=== PATIENT | male | born 1980 | race Two or more races ===

== ENCOUNTER 2024-05-18 11:18 | Outpatient (AMB) | payer OTHER, SELFPAY ==
--- NOTE | 2024-05-18 11:20 | A.OFFPC_ITS ---
Vital Signs 05/18/24 11:23 Height 5 ft 9.69 in Weight 227 lb 2 oz BMI 32.9 BP 160/104 H Blood Pressure Location Lt brachial Position Sitting Respiration 16 Pulse 99 Temp 99.9 F Temp Source Oral Pulse Oximetry (%) 96 Oxygen Delivery Method Room Air Intake Visit Reasons: establish care Intake Note: Patient is a new patient here to establish care. [facility] Medical records have not been requested and have not been received; Release signed today. Assembler Erector Required: No Accompanied by: Self / Same As Patient Allergies bee venom protein (honey bee) Allergy (Severe, Verified 05/20/24 20:54) Anaphylaxis bee sting Allergy (Unknown, Uncoded 05/20/24 20:54) anaphylaxis Medication List - Last Reconciled 05/18/24 by KALIA Muniz amlodipine 10 mg PO DAILY Tobacco use date assessed: 05/18/24 Dental Screening Dental Screen Date: 05/18/24 Did you have a dental visit in the last 12 months?: No Did you have a dental problem in the last 6 months where you did not have access to dental care?: No HPI establish care HPI Details Previous PCP: cannot remember Last visit:does not remember Last PE: Specialist: no OBGYN:n/a Past medical history: elevated high blood pressure Medications: amlodipine 10 mg daily Family HX: mother has triple bypass, father heart disease, had a coronary stent (passed in his 70s) Problem: The patient reports that he has been monitoring his blood pressure and he did not like the numbers that he was getting. Reports that he took the medication until he got better then he stopped taking it. Reports that lately he has been feeling bad and again The patient reports getting and right sided chest pain and cause current type pain down his arm, reports that when he add pressure the pain goes away. Reports that it has been happening every day lately. Reports that today, it is a little bit better, yesterday he felt pale and dizzy. Reports that he has been getting heart palpitation as well and shortness of breath. ekg negative, will start the patient back on amlodipine 10 mg daily the patient will write on the portal about his blood pressure readings for adjustment. Will do a cardiology referral left heel: unable to put full weight on it in the mornings reports limping in the morning until his body's warm up, then he is able to put full body weight. Will do an xray of the calcaneal numbness on his face intermittent overall, but sometimes on the left side of his face only. Sensation in bilateral and equally, strong facial muscles, slight left side of mouth drooping. The patient reports that his face been like this. No focal weakness feels like left knee gives out sometime hx of l4-5 cortisone shots, they wanted to do surgery but he declined it-reports that he lost weight and that made him feels better. Hx of sciatica on left side that had him out for like 6 months. Reports that his eyesight has gotten bad-at times things are blurry that he was able to see without any issues. [facility] Medical History (Updated 05/20/24 @ 21:34 by KALIA Muniz) Pain of left heel Flat feet, bilateral Surgical History H/O right wrist surgery S/P appendectomy Family History Mother Hypertension Diabetes S/P triple vessel bypass Father Kidney disease Heart disease Son No problems noted. Daughter No problems noted. Social History Household Members: None Housing: House Alcohol intake: current Patient Tobacco Use Status: Current everyday Tobacco user Tobacco use type: Cigarette Cigarettes Per Day: 5 e-Cigarette/Vaping Use: Never Used service: No Current occupational status: employed Current occupation: [employer] Cognitive needs: No Hearing needs: No Vision needs: No Questionnaire PHQ-9 Over the last 2 weeks, how often have you been bothered by any of the following problems? 1. Little interest or pleasure in doing things: several days 2. Feeling down, depressed, or hopeless: several days 3. Trouble falling or staying asleep, or sleeping too much: nearly every day 4. Feeling tired or having little energy: nearly every day 5. Poor appetite or overeating: more than half the days 6. Feeling bad about yourself - or that you are a failure or have let yourself or your family down: several days 7. Trouble concentrating on things, such as reading the newspaper or watching television: not at all 8. Moving or speaking so slowly that other people could have noticed. Or the opposite - being so fidgety or restless that you have been moving around a lot more than usual: not at all 9. Thoughts that you would be better off or of hurting yourself in some way: not at all Total score: 11 Depression Screening Interpretation: Positive Depression Screening Done: Yes 65751 - PHQ-9 Billing: Yes Source: Developed by Drs. Lobo Galan, Tigist Hart, Richard Eldridge and colleagues, with an educational leroy from [employer]. Thrive Questionnaire I am a: Patient What is your living situation today?: I have a steady place to live Within the past 12 months, did the food you bought not last and you didn't have the money to get more?: Never true Within the past 12 months, did you worry whether your food would run out before you got money to buy more?: Never true Do you have trouble paying for medicines?: No Do you have trouble getting transportation to medical appointments?: No Do you have trouble paying your heating and electricity bill?: No Do you have trouble taking care of your child, family member or friend?: No Do you have trouble with day-to-day activities such as bathing, preparing meals, shopping, managing finances, etc.?: No Are you currently unemployed and looking for a job?: No Are you interested in more education?: No Please select the resources that you would like help with: None Currently or been in a relationship where the following occur: No concerns reported THRIVE Score: 0 AUDIT C Alcohol Use Questionnaire (AUDIT-C) 1. How often do you have a drink containing alcohol?: 2-4 times a month 2. How many drinks containing alcohol do you have on a typical day when you are drinking?: 5 or 6 3. How often do you have six or more drinks on one occasion?: Weekly Total Score: 7 ADARSH-7 AMB Questionnaire ADARSH-7 Date ADARSH - 7 assessed: 05/18/24 Feeling nervous, anxious, or on edge: 1 = Several days Not being able to stop or control worryin = Several days Worrying too much about different things: 3 = Nearly every day Trouble relaxin = Nearly every day Being so restless that it is hard to sit still: 3 = Nearly every day Becoming easily annoyed or irritable: 2 = More than half the days Feeling afraid as if something awful might happen: 0 = Not at all Total ADARSH-7 score (0-4 normal; 5-9 mild; 10-14 moderate; 15-21 severe): 13 Source: Developed by Drs. Lobo Galan, Tigist Hart, Richard Eldridge and colleagues, with an educational leroy from [employer]. ADARSH-7 Assessment Billing ADARSH-7 Assessment Tool: ADARSH-7 Assessment 63392 Review of Systems Const Details: Denies chills, Denies fatigue, Denies fever(s), Denies headache(s) and Denies weakness HEENT +change in vision (blurry vision), Denies dizziness, Denies headache(s), Denies hearing loss, Denies nasal congestion, Denies sinus pain, Denies sinus pressure and Denies sore throat Card reports intermittent chest pain, Denies lightheadedness, Denies dyspnea and + heart palpitations intermittently Resp Denies cough, Denies dyspnea and Denies wheezing GI Denies abdominal pain, Denies melena, Denies hematochezia, Denies change in bowel habits, Denies dyspepsia and Denies nausea Denies hematuria and Denies dysuria Musc Denies abnormal gait, Denies myalgias, +arthralgias (left heel pain worse in the mornings and gets better throughout the day), + numbness (whole face and at times just the left side) and Denies tingling Skin/Breast Denies rash, Denies unusual bruising and Denies wounds Neuro Denies abnormal gait, +dizziness (reports he looked pale and felt dizziness yesterday, but better today), Denies headache(s), Denies memory loss, +numbness(whole face and at times just the left side), Denies Sensory deficit (Neuro), Denies tingling and Denies weakness Psych Denies anxiety, Denies depression and Denies memory loss Endo Denies cold intolerance, Denies fatigue, Denies heat intolerance, Denies polydipsia and Denies polyuria Al/Lymph Denies easy bleeding and Denies easy bruising Aller/Immun Denies wheezing Physical exam (Primary Care) Vital Signs: Last Vital Signs Temp 99.9 F 05/18/24 11:23 Pulse 99 05/18/24 11:23 Resp 16 05/18/24 11:23 BP 160/104 H 05/18/24 11:23 Pulse Ox 96 05/18/24 11:23 Oxygen Delivery Method Room Air 05/18/24 11:23 BMI result Body Mass Index 32.9 Tobacco/Smoking Status: Tobacco use Status Tobacco use date assessed 05/18/24 05/18/24 11:38 Patient Tobacco Use Status Current everyday Tobacco 05/18/24 11:38 Tobacco use type Cigarette 05/18/24 11:38 e-Cigarette/Vaping Use Never Used 05/18/24 11:38 PHQ-9: PHQ-9 Score PHQ-9: Total score 11 05/18/24 12:04 Depression Screening Interpretation: Positive Currently or been in a relationship where the following occur: No concerns reported Const Other: General: no acute distress, well developed, alert and awake Nutritional Appearance: well nourished Orientation/consciousness: patient oriented x3 HENMT Head: Yes normocephalic and Yes atraumatic Ears: hearing grossly normal bilaterally and TM's normal bilaterally General nose exam: Normal external nose present and Normal nares present Mouth: Normal oral and palatal mucosa present and moist mucous membranes Teeth and gingiva: dentition normal Throat: Yes oropharynx normal Eyes Pupils: Equal, round and reactive pupils present and Pupil accommodation reflex normal EOM: EOMs intact bilaterally Neck Neck: Yes normal visual inspection, Yes no lymphadenopathy Thyroid: Thyroid normal Lymphatic: no lymphadenopathy noted Chest Chest palpation & inspection: normal inspection of the chest Resp Effort & Inspection: normal respiratory effort Auscultation: clear to auscultation bilaterally Cardio Rate: regular rate Rhythm: regular rhythm Heart sounds: S1 normal heart sound present, S2 normal heart sound present, no gallops, no murmurs and no rubs GI Palpation (GI): Abdomen is soft and nontender Auscultation: normal bowel sounds General: Yes no CVA tenderness Back/Spine/Pelvis Back: no CVA tenderness Cervical Spine: cervical ROM normal and No Cervical spine tenderness Thoracic/Lumbar Spine: No tenderness left heel: no tender to palpation, no erythema, no edema Skin General: warm and dry. Normal skin color. Normal skin turgor Lesions: no lesions Rashes: no rashes Trauma: no lacerations or abrasions Wounds: no wounds Nails: normal Neuro General: patient oriented x3, gait normal Cranial nerves: Yes Equal, round and reactive pupils present Cognition (Neuro): normal cognition Gait exam (Neuro): Normal gait present +slight left mouth droop, positive and equal sensation to both side of face Extrem General: Yes normal to inspection, No edema and No calf tenderness Psych Appearance: grossly normal Affect: normal affect Attitude: cooperative Thought process: Normal thought process present Coding Level of Care Code New Pt Level 4 (56352) Diagnoses Precordial pain R07.2 Chest pain type: precordial pain Numbness of face R20.0 Pain of left heel M79.672 Mouth droop R29.810 Blurred vision H53.8 Elevated blood pressure reading R03.0 Additional Codes ADARSH-7 Assessment Billing - ADARSH-7 Assessment Tool: ADARSH-7 Assessment 95714 ([id number]) PHQ-9 - 03539 - PHQ-9 Billing: Yes ([id number]) Time Spent (min) 38 Assessment & Plan Assessment & Plan (1) Chest pain: Code(s): R07.9 - Chest pain, unspecified Category: Medical Qualifiers: Chest pain type: precordial pain Qualified Code(s): R07.2 - Precordial pain Plan: the pain goes away. Reports that it has been happening every day lately. Reports that today, it is a little bit better, yesterday he felt pale and dizzy. Reports that he has been getting heart palpitation as well and shortness of breath. ekg negative, will start the patient back on amlodipine 10 mg daily the patient will write on the portal about his blood pressure readings for adjustment. Will do a cardiology referral (2) Numbness of face: Code(s): R20.0 - Anesthesia of skin Category: Medical Plan: Reports numbness on his whole face intermittent, but sometimes on the left side of his face only. Sensation bilateral and equally, strong facial muscles, slight left side face drooping. No focal weakness, refer to neurology (3) Pain of left heel: Code(s): M79.672 - Pain in left foot Category: Medical Plan: left heel: unable to put full weight on it in the mornings reports limping in the morning until his body's warm up, then he is able to put full body weight. Will do an xray of the calcaneal (4) Mouth droop: Code(s): R29.810 - Facial weakness Category: Medical Plan: Will refer the patient to neurology (5) Blurred vision: Code(s): H53.8 - Other visual disturbances Category: Medical Plan: will refer the patient to ophthalmology (6) Elevated blood pressure reading: Code(s): R03.0 - Elevated blood-pressure reading, without diagnosis of hypertension Category: Medical Plan: The patient reports that he has been monitoring his blood pressure and he did not like the numbers that he was getting. Reports that he took the medication until he got better then he stopped taking it. Reports that lately he has been feeling bad and again The patient reports getting and right sided chest pain and cause current type pain down his arm, reports that when he add pressure the pain goes away. Amlodipine 10 mg daily was reordered. Discussed with patient to monitor his blood pressure frequently and report readings through the portal Plan The patient to return 6 weeks for annual physical Orders: Orders Complete Blood Count Auto Diff 05/18/24 R03.0 - Elevated blood-pressure reading, without diagnosis of hypertension, Z00.00 - Encounter for general adult medical examination without abnormal findings Comprehensive Oxford. Panel Fast 05/18/24 R03.0 - Elevated blood-pressure reading, without diagnosis of hypertension, Z00.00 - Encounter for general adult medical examination without abnormal findings Lipid Panel 05/18/24 R03.0 - Elevated blood-pressure reading, without diagnosis of hypertension, Z00.00 - Encounter for general adult medical examination without abnormal findings UA CC w/rflx Micro + Cult 05/18/24 R03.0 - Elevated blood-pressure reading, without diagnosis of hypertension, Z00.00 - Encounter for general adult medical examination without abnormal findings Glucose Fasting 05/18/24 R03.0 - Elevated blood-pressure reading, without diagnosis of hypertension, Z00.00 - Encounter for general adult medical examination without abnormal findings AMB EKG-In Office 05/18/24 R07.2 - Precordial pain XR calcaneus LT min 2V 05/18/24 M79.672 - Pain in left foot Vitamin D 25-OH Total 05/18/24 R03.0 - Elevated blood-pressure reading, without diagnosis of hypertension, Z00.00 - Encounter for general adult medical examination without abnormal findings TSH reflex Free T4 05/18/24 R03.0 - Elevated blood-pressure reading, without diagnosis of hypertension, Z00.00 - Encounter for general adult medical examination without abnormal findings Microalbumin, Random (w Creat) 05/18/24 R03.0 - Elevated blood-pressure reading, without diagnosis of hypertension, Z00.00 - Encounter for general adult medical examination without abnormal findings Referrals Neurology Referral R20.0 - Anesthesia of skin, R29.810 - Facial weakness Ophthalmology Referral H53.8 - Other visual disturbances Cardiology Referral R03.0 - Elevated blood-pressure reading, without diagnosis of hypertension, R07.2 - Precordial pain Medications: New amlodipine 10 mg PO DAILY 90 tabs 3RF
[2024-05-18 11:23] VITALS: BP 160/104; PULSE 99; RESP 16; TEMP 37.7; O2SAT 96; BMI 32.9
--- OUTSIDE RECORDS SUMMARY | 2024-05-18 13:07 | XMS_ITS | Clinical Summary ---
Author Organization [facility] ity Address [address] [place] [address] Care Team Providers Care Music Specialist Name Role Phone Unavailable Primary Care Provider Unavailabl e Social History Tobacco Use Types Packs/Day Years Used Date Smoking Tobacco: Never Assessed Sex and Gender Information Value Date Recorded Sex Assigned at Not on file Legal Sex Male 2:56 AM EST Gender Identity Not on file Sexual Orientation Not on file Plan of Treatment Health Maintenance Due Date Last Done Comments DTaP,Tdap,and Td Vaccines (1 - Tdap) 1997 Hepatitis B Vaccines (1 of 3 - 19+ 3-dose series) 1997 Cholesterol Screening (Lipid Panel) 04/12/2023 Colorectal Cancer Screening: Colonoscopy 04/12/2023 Depression Screening 04/12/2023 HIV Screening 04/12/2023 Hepatitis C Screening 04/12/2023 Social Influencers of Health Screening 04/12/2023 COVID-19 Vaccine ( - 2023-2 5 season) 2023 Influenza Vaccine (#1) 2023 Hypertension/CHF/CAD Annual BMP Blood Test 01/07/2024 HIB Vaccines Aged Out No longer eligi ble based on patient's age to complete this topic HPV Vaccines Aged Out No longer eligi ble based on patient's age to complete this topic Hepatitis A Vaccines Aged Out No long er eligible based on patient's age to complete this topic IPV Vaccines Aged Out No longer eligi ble based on patient's age to complete this topic MMR Vaccines Aged Out No longer eligi ble based on patient's age to complete this topic Meningococcal ACWY Vaccine Aged Out N o longer eligible based on patient's age to complete this topic Meningococcal B Vacine Aged Out No lo nger eligible based on patient's age to complete this topic Pneumococcal Vaccine: Pediat rics (0 to 5 Years) and At-Risk Patients (6 to 64 Years) Aged Out No longer eligible b ased on patient's age to complete this topic RSV Immunization Patients Un justin 20 months Aged Out No longer eligible b ased on patient's age to complete this topic Varicella Vaccines Aged Out No longer eligible based on patient's age to complete this topic
== END 2024-05-18 12:31 | disposition home or self-care (01) ==
LOC: HO.HMCH 11:18
DX: R07.2 Precordial pain (principal); R20.0 Anesthesia of skin; M79.672 Pain in left foot; R29.810 Facial weakness; H53.8 Other visual disturbances; R03.0 Elevated blood-pressure reading, without diagnosis of hypertension

== ENCOUNTER → 2024-05-18 11:18 | Outpatient (BNVA) | payer OTHER, SELFPAY | DX: R07.2 Precordial pain (principal); R20.0 Anesthesia of skin; M79.672 Pain in left foot; R29.810 Facial weakness; H53.8 Other visual disturbances; R03.0 Elevated blood-pressure reading, without diagnosis of hypertension | CPT/HCPCS: 96127 ==

== ENCOUNTER 2024-05-22 08:09 | Outpatient (REF) | payer OTHER, SELFPAY ==
--- NOTE | ~2024-05-22 | XR_ITS ---
EXAMINATION: XR CALCANEUS, LEFT CLINICAL INFORMATION: M79.672 - Pain in left foot COMPARISON: None available. TECHNIQUE: Lateral and axial views of the left calcaneus were obtained. FINDINGS: No fracture, dislocation, or suspicious bone lesion. Subtalar joints appear normal. The talus appears normal. The calcaneus demonstrate a moderate-sized plantar spur. It is otherwise normal. No soft tissue abnormalities. XR/XR calcaneus LT min 2V IMPRESSION: Moderate-sized plantar calcaneal spur. Electronically signed by: Kendrick Sherman MD 05/22/2024 01:54 PM EDT
[2024-05-22 08:43] LABS: MANUAL DIFF FLAG NO
--- OUTSIDE RECORDS SUMMARY | 2024-05-22 08:49 | XMS_ITS | Clinical Summary ---
Author Organization General Specific [facility] ity Address [address] [place] [address] Care Team Providers Care Dehydration Unit Operator Name Role Phone Unavailable Primary Care Provider [...]
[2024-05-22 09:43] LABS: Basophils Percent Auto 0.4 % (0-2); Eosinophils Absolute Auto 0.2 X10*3/uL (0.0-0.4); Eosinophils Percent Auto 2.2 % (0-4); Hematocrit 43.1 % (42.0-52.0); Imm Gran Abs Auto 0.03 X10*3/uL (0.00-0.03); Imm Gran Pct Auto 0.4 % (0.0-0.4); Lymphocytes Absolute Auto 2.7 X10*3/uL (1.2-4.9); Lymphocytes Percent Auto 38.8 % (20-40); Mean Corpuscular HGB Conc 32.5 g/dl (31.0-36.0); Mean Corpuscular Hemoglobin 30.5 pg (27.0-33.0); Mean Corpuscular Volume 93.9 fL (80.0-98.0); Mean Platelet Volume 9.2 fL (9.4-12.4); Monocytes Absolute Auto 0.5 X10*3/uL (0.1-1.2); Monocytes Percent Auto 6.9 % (2-11); Neutrophils Absolute Auto 3.5 x10*3/uL (2.0-8.3); Neutrophils Percent Auto 51.3 % (45-73); Platelet Count 266 X10*3/uL (160-400); Red Blood Count 4.59 X10*6/uL (4.60-5.80); Red Cell Distribution Width 12.3 % (11.0-16.0); White Blood Count 6.9 X10*3/uL (4.8-10.8)
[2024-05-22 10:03] LABS: Appearance Urine Clear; Color Urine Yellow; Glucose Urine UA Negative (Negative); Leukocyte Esterase Urine Negative (Negative); Nitrite Urine Negative (Negative); PH 5.5 (5.0-9.0); Specific Gravity - Urine 1.015 (1.005-1.025); Urine Blood Negative (Negative); Urine Ketones Negative (Negative); Urine Protein Negative (Neg-Trace)
[2024-05-22 10:26] LABS: Alanine Aminotransferase 32 U/L (0-40); Albumin Level 4.1 g/dL (3.5-5.0); Alkaline Phosphatase 69 U/L (39-117); Anion Gap 10 (12-20); Aspartate Amino Transferase 36 U/L (5-37); Bilirubin Total 0.7 mg/dL (0.0-1.0); Blood Urea Nitrogen 13 mg/dL (9-16); Calcium 8.5 mg/dL (8.4-10.2); Carbon Dioxide 26 mmol/L (22-29); Chloride 110 mmol/L (96-108); Cholesterol 235 mg/dL (<200); Estimated Glomerular Filt Rate > 60; Glucose Fasting 99 mg/dL (60-99); HDL Cholesterol 57 mg/dL (>40); LDL Cholesterol Calculated 134 mg/dL (<100); Potassium 3.8 mmol/L (3.3-5.1); Sodium 142 mmol/L (135-145); Total Protein 7.6 g/dL (6.5-8.0); Triglycerides 223 mg/dL (<150)
[2024-05-22 10:47] LABS: TSH reflex Free T4 1.73 uIU/mL (0.32-4.0); Vitamin D 25-OH Total 10.1 ng/mL (>30)
[2024-05-22 11:50] LABS: Creatinine Urine 128.29 mg/dL; Microalbum/Creatinine Ratio Ur 9.3 ug/mg cr (<30)
== END 2024-05-22 08:10 | disposition home or self-care (01) ==
LOC: HO.LAB 08:09
DX: Z00.00 Encounter for general adult medical examination without abnormal findings (principal); M79.672 Pain in left foot; R03.0 Elevated blood-pressure reading, without diagnosis of hypertension; Z13.6 Encounter for screening for cardiovascular disorders
CPT/HCPCS: 36415; 73650; 80053; 80061; 81003; 82043; 82306; 82570; 84443; 85025

== ENCOUNTER → 2024-05-22 08:47 | Outpatient (BNV) | payer OTHER, SELFPAY | PROVIDERS: Visit Provider Radiology Diagnostic Radiology | DX: M77.32 Calcaneal spur, left foot (principal) | CPT/HCPCS: 73650 ==

== ENCOUNTER 2024-06-29 11:08 | Outpatient (AMB) | payer OTHER, SELFPAY ==
--- NOTE | 2024-06-29 11:14 | A.OFFPC_ITS ---
Vital Signs 06/29/24 11:15 Height 5 ft 10 in Weight 232 lb 6.4 oz BMI 33.3 BP 136/82 Blood Pressure Location Lt brachial Position Sitting Respiration 16 Pulse 102 H Pulse Source Pulse Oximeter Temp 98.8 F Temp Source Oral Pulse Oximetry (%) 97 Oxygen Delivery Method Room Air Intake Visit Reasons: ANNUAL Data Reduction Technician Required: No Accompanied by: Self / Same As Patient Allergies bee venom protein (honey bee) Allergy (Severe, Verified 06/29/24 11:47) Anaphylaxis bee sting Allergy (Unknown, Uncoded 06/29/24 11:47) anaphylaxis Medication List - Last Reconciled 06/29/24 by KALIA Muniz amlodipine 10 mg PO DAILY Tobacco use date assessed: 06/29/24 Dental Screening Dental Screen Date: 06/29/24 Did you have a dental visit in the last 12 months?: Yes Did you have a dental problem in the last 6 months where you did not have access to dental care?: No Was dental information given to patient?: Patient has dentist HPI ANNUAL HPI Details The patient is a 44-year-old male presenting for annual physical. He reports ongoing palpitations and hypertension management concerns. He reports daily palp itations with stabbing chest pain radiating down his arms. Prior visit, ekg was completed for similar symptoms, which was negative for any acute findings. Will order 7 day Holter monitor in attempts to capture heart rhythm during palpitations. The patient does reports anxiety that he has been managing on his own. Associated symptoms include intermittent dizziness, breathlessness, and sleep disturbances potentially indicative of obstructive sleep apnea. He experiences variations in blood pressure control and is on Vitamin D supplementation for deficiency, though dosage is unspecified. The patient is hesitant about cholesterol medication due to familial observations ( noted that his mother takes a lot of pills and he does not want that ) but acknowledges a history of hyperlipidemia with improvement from prior elevated levels. Health Maintenance: - Consideration of home sleep study for obstructive sleep apnea assessment. - Vitamin D supplementation recommended at 2000 IU daily for deficiency correction. - Cholesterol management discussed with potential need for medication due to cardiac symptoms. - Recommended the introduction of low-do se cholesterol medication, considering symptoms and risk factors. - Monitoring with a Holter monitor to as sess palpitations and cardiac symptoms. - Blood tests planned for additional car diac evaluation. - Increase magnesium at night for muscle cramps and improved sleep. - Maintain low sodium intake to manage f luid retention. - Diabetes and cholesterol management [facility] lifestyle modifications discussed. - Routine dental check and vision appoin tments planned. - Home sleep study for assessment of pot ential sleep apnea recommended. -declined vaccinations [facility] Medical History (Updated 06/29/24 @ 12:26 by KALIA Muniz) Pain of left heel Flat feet, bilateral Surgical History H/O right wrist surgery S/P appendectomy Family History Mother Hypertension Diabetes S/P triple vessel bypass Father Kidney disease Heart disease Son No problems noted. Daughter No problems noted. Social History Household Members: None Housing: House Alcohol intake: current Patient Tobacco Use Status: Current everyday Tobacco user Tobacco use type: Cigarette Cigarette Packs Per Day: 0.25 Cigarettes Per Day: 5 e-Cigarette/Vaping Use: Never Used service: No Current occupational status: employed Current occupation: Compensation Adjuster Cognitive needs: No Hearing needs: No Vision needs: No Questionnaire PHQ-9 Over the last 2 weeks, how often have you been bothered by any of the following problems? 1. Little interest or pleasure in doing things: several days 2. Feeling down, depressed, or hopeless: not at all 3. Trouble falling or staying asleep, or sleeping too much: several days 4. Feeling tired or having little energy: several days 5. Poor appetite or overeating: several days 6. Feeling bad about yourself - or that you are a failure or have let yourself or your family down: not at all 7. Trouble concentrating on things, such as reading the newspaper or watching television: not at all 8. Moving or speaking so slowly that other people could have noticed. Or the opp osite - being so fidgety or restless that you have been moving around a lot more than usual: several days 9. Thoughts that you would be better off or of hurting yourself in some way: not at all Total score: 5 Depression Screening Interpretation: Positive Depression Screening Done: Yes Source: Developed by Drs. Lobo Galan, Tigist Hart, Richard Eldridge and colleagues, with an educational leroy from [employer]. Thrive Questionnaire Date Thrive assessed: 06/29/24 I am a: Patient What is your living situation today?: I have a steady place to live Within the past 12 months, did the food you bought not last and you didn't have the money to get more?: Sometimes True Within the past 12 months, did you worry whether your food would run out before you got money to buy more?: Sometimes True Do you have trouble paying for medicines?: I choose not to answer this question Do you have trouble getting transportation to medical appointments?: No Do you have trouble paying your heating and electricity bill?: Yes Do you have trouble taking care of your child, family member or friend?: No Do you have trouble with day-to-day activities such as bathing, preparing meals, shopping, managing finances, etc.?: No Are you currently unemployed and looking for a job?: No Are you interested in more education?: No Please select the resources that you would like help with: Food Currently or been in a relationship where the following occur: I choose not to answer THRIVE Score: 3 AUDIT C Alcohol Use Questionnaire (AUDIT-C) 1. How often do you have a drink containing alcohol?: 2-3 times a week 2. How many drinks containing alcohol do you have on a typical day when you are drinking?: 3 or 4 3. How often do you have six or more drinks on one occasion?: Weekly Total Score: 7 Score Reviewed/Action Taken: Yes ADARSH-7 AMB Questionnaire DAARSH-7 Date ADARSH - 7 assessed: 06/29/24 Feeling nervous, anxious, or on edge: 1 = Several days Not being able to stop or control worryin = Several days Worrying too much about different things: 1 = Several days Trouble relaxin = Several days Being so restless that it is hard to sit still: 1 = Several days Becoming easily annoyed or irritable: 1 = Several days Feeling afraid as if something awful might happen: 0 = Not at all Total ADARSH-7 score (0-4 normal; 5-9 mild; 10-14 moderate; 15-21 severe): 6 Source: Developed by Drs. Lobo Galan, Tigist Hart, Richard Eldridge and colleagues, with an educational leroy from [employer]. Review of Systems Const Denies headache(s) and Reports lethargy Eyes Reports blurry vision and Denies loss of vision ENT Denies vertigo, Reports dizziness (Intermittent), Denies headache(s), Denies sore throat and Reports other (Reports facial swelling sensation and feeling stretched) Card Reports chest pain (Intermittent almost everyday), Reports rapid heart rate, Denies leg edema, Denies lightheadedness, Denies radiating jaw, neck or arm pain, Reports dyspnea on exertion and Reports other (reports feeling like legs are swollen) Resp Denies cough, Denies hemoptysis, Reports dyspnea on exertion and Denies wheezing GI Denies abdominal pain, Denies melena, Denies constipation, Denies diarrhea and Denies vomiting Denies dysuria, Denies urinary frequency and Denies urinary urgency Musc Denies arthralgias, Denies joint swelling, Denies numbness and Denies tingling Neuro Denies Abnormal speech present, Denies behavioral changes, Denies vertigo, Reports dizziness (Intermittent), Denies headache(s), Denies loss of vision, Denies memory loss, Denies numbness and Denies tingling Psych Reports anxiety, Denies behavioral changes, Denies depression, Denies memory loss and Denies panic attacks Al/Lymph Denies easy bleeding and Denies easy bruising Aller/Immun Denies wheezing Physical exam (Primary Care) Vital Signs: Last Vital Signs Temp 98.8 F 06/29/24 11:15 Pulse 102 H 06/29/24 11:15 Resp 16 06/29/24 11:15 BP 136/82 06/29/24 11:15 Pulse Ox 97 06/29/24 11:15 Oxygen Delivery Method Room Air 06/29/24 11:15 BMI result Body Mass Index 33.3 Tobacco/Smoking Status: Tobacco use Status Tobacco use date assessed 06/29/24 06/29/24 11:19 Patient Tobacco Use Status Current everyday Tobacco 06/29/24 11:19 Tobacco use type Cigarette 06/29/24 11:19 e-Cigarette/Vaping Use Never Used 06/29/24 11:19 PHQ-9: PHQ-9 Score PHQ-9: Total score 5 04/18/25 11:50 Depression Screening Interpretation: Positive Thrive Assessment: Date of Thrive Assessment Date Thrive assessed 06/29/24 06/29/24 11:19 Currently or been in a relationship where the following occur: I choose not to answer Const General: healthy appearing, no acute distress, alert and awake Nutritional Appearance: well nourished Orientation/consciousness: oriented to person, oriented to place and oriented to time HENMT Ears: TM's normal bilaterally General nose exam: Normal nasal mucous membranes and turbinates present Eyes Conjunctivae: conjunctivae normal Sclerae: sclerae normal Pupils: Equal, round and reactive pupils present Neck Neck: Yes no lymphadenopathy and Yes no JVD Thyroid: Thyroid normal Carotids: no bruits Resp Effort & Inspection: normal respiratory effort and not tachypneic Auscultation: no crackles, no rales, no rhonchi and no wheezes Cardio Rate: regular rate Rhythm: regular rhythm Heart sounds: no murmurs and normal S1 and S2 GI Palpation (GI): Soft to palpation, nontender, no hepatomegaly and no splenomegaly Auscultation: normal bowel sounds Skin General skin exam: no rashes or lesions noted and dry skin Neuro General: oriented to person, oriented to place and oriented to time Cranial nerves: Yes Equal, round and reactive pupils present Speech: No Abnormal speech present Gait exam (Neuro): Normal gait present Motor exam (neuro): no tremor noted Extrem Right upper extremity: full ROM Left upper extremity: full ROM Right lower extremity: full ROM and edema Details: non-pitting and 1+ Left lower extremity: full ROM and edema Details: non-pitting and 1+ Psych Mental Status: mental status grossly normal Speech and movement: Normal speech and movement present Affect: normal affect Attitude: cooperative Thought process: Normal thought process present Results Reviewed Results Reviewed: Laboratory Tests 05/22/24 05/22/24 08:40 08:42 WBC 6.9 RBC 4.59 L Hgb 14.0 Hct 43.1 MCV 93.9 MCH 30.5 RDW 12.3 Plt Count 266 Sodium 142 Potassium 3.8 Chloride 110 H Carbon Dioxide 26 Anion Gap 10 L BUN 13 Creatinine 0.96 Estimated GFR > 60 Fasting Glucose 99 Calcium 8.5 Total Bilirubin 0.7 AST 36 ALT 32 Alkaline Phosphatase 69 Total Protein 7.6 Albumin 4.1 Triglycerides 223 H Cholesterol 235 H LDL Cholesterol, Calc 134 H HDL Cholesterol 57 25-OH Vitamin D Total 10.1 L TSH 1.73 Urine Color Yellow Urine Appearance Clear Urine pH 5.5 Ur Specific Friendship 1.015 Urine Glucose (UA) Negative Urine Ketones Negative Urine Blood Negative Urine Nitrite Negative Ur Leukocyte Esterase Negative Urine Creatinine 128.29 Urine Microalbumin 12.0 Microalb/Creat Ratio 9.3 Coding Level of Care Code Est Pt Prev Care 40-64y(56951) Diagnoses Annual physical exam Z00.00 Elevated blood pressure reading R03.0 Numbness of face R20.0 Blurred vision H53.8 Heart palpitations R00.2 Stabbing chest pain R07.89 Leg swelling M79.89 Tiredness R53.83 Vitamin D deficiency E55.9 Elevated cholesterol E78.00 Time Spent (min) 39 Assessment & Plan Assessment & Plan (1) Annual physical exam: Code(s): Z00.00 - Encounter for general adult medical examination without abnormal findings Category: Medical (2) Elevated blood pressure reading: Code(s): R03.0 - Elevated blood-pressure reading, without diagnosis of hypertension Category: Medical (3) Numbness of face: Code(s): R20.0 - Anesthesia of skin Category: Medical (4) Blurred vision: Code(s): H53.8 - Other visual disturbances Category: Medical (5) Heart palpitations: Code(s): R00.2 - Palpitations Category: Medical (6) Stabbing chest pain: Code(s): R07.89 - Other chest pain Category: Medical (7) Leg swelling: Code(s): M79.89 - Other specified soft tissue disorders Category: Medical (8) Tiredness: Code(s): R53.83 - Other fatigue Category: Medical (9) Vitamin D deficiency: Code(s): E55.9 - Vitamin D deficiency, unspecified Category: Medical (10) Elevated cholesterol: Code(s): E78.00 - Pure hypercholesterolemia, unspecified Category: Medical Plan We are implementing a Holter monitor for a week to assess the patient's palpitations, alongside planning a home sleep study due to symptoms suggestive of obstructive sleep apnea. Vitamin D supplementation has been increased to 2000 IU daily to combat deficiency and fatigue. A comprehensive blood work-up will assess possible cardiac causes of edema and breathlessness. Due to hyperlipidemia, the option of starting statin therapy was discussed, but the patient is cautious due to observed family medication burdens. Recommendations included reducing sodium intake to aid with fluid management, introducing magnesium at night for muscle cramp relief, and consistent follow-ups for hypertension, cholesterol, and anxiety management. Additionally, ensuring routine dental and visual check-ups and addressing work stress are advised. Started the patient on atorvastatin 10 mg at bedtime and hydroxyzine 50 mg BID PRN. Patient was informed and verbally consented to the use of an ambient scribe for clinic note documentation during this visit. Orders: Orders CK, Total+Isoenzymes, Serum 06/29/24 M79.89 - Other specified soft tissue disorders, R07.89 - Other chest pain, R53.83 - Other fatigue CRP High Sensitivity 06/29/24 M79.89 - Other specified soft tissue disorders, R07.89 - Other chest pain, R53.83 - Other fatigue Erythrocyte Sedimentation Rate 06/29/24 M79.89 - Other specified soft tissue disorders, R07.89 - Other chest pain, R53.83 - Other fatigue TSH reflex Free T4 3 Months E55.9 - Vitamin D deficiency, unspecified, M79.89 - Other specified soft tissue disorders, R00.2 - Palpitations, R03.0 - Elevated blood-pressure reading, without diagnosis of hypertension, R53.83 - Other fatigue ECG 7 day holter monitor 06/29/24 R00.2 - Palpitations, R07.89 - Other chest pain B Type Natriuretic Peptide 06/29/24 M79.89 - Other specified soft tissue disorders, R07.89 - Other chest pain RT home sleep study 06/29/24 R53.83 - Other fatigue Lipid Panel 3 Months E55.9 - Vitamin D deficiency, unspecified, M79.89 - Other specified soft tissue disorders, R00.2 - Palpitations, R03.0 - Elevated blood- pressure reading, without diagnosis of hypertension, R53.83 - Other fatigue UA CC w/rflx Micro + Cult 3 Months E55.9 - Vitamin D deficiency, unspecified, M79.89 - Other specified soft tissue disorders, R00.2 - Palpitations, R03.0 - Elevated blood-pressure reading, without diagnosis of hypertension, R53.83 - Other fatigue Microalbumin, Random (w Creat) 3 Months E55.9 - Vitamin D deficiency, unspecified, M79.89 - Other specified soft tissue disorders, R00.2 - Palpitations, R03.0 - Elevated blood-pressure reading, without diagnosis of hypertension, R53.83 - Other fatigue Vitamin D 25-OH Total 3 Months E55.9 - Vitamin D deficiency, unspecified, E78.00 - Pure hypercholesterolemia, unspecified, M79.89 - Other specified soft tissue disorders, R00.2 - Palpitations, R03.0 - Elevated blood-pressure reading, without diagnosis of hypertension, R53.83 - Other fatigue Complete Blood Count Auto Diff 3 Months E55.9 - Vitamin D deficiency, unspecified, E78.00 - Pure hypercholesterolemia, unspecified, M79.89 - Other specified soft tissue disorders, R00.2 - Palpitations, R03.0 - Elevated blood- pressure reading, without diagnosis of hypertension, R53.83 - Other fatigue Comprehensive Ivins. Panel Fast 3 Months E55.9 - Vitamin D deficiency, uns pecified, E78.00 - Pure hypercholesterolemia, unspecified, M79.89 - Other specified soft tissue disorders, R00.2 - Palpitations, R03.0 - Elevated blood- pressure reading, without diagnosis of hypertension, R53.83 - Other fatigue Medications: New atorvastatin 10 mg PO BEDTIME 30 tabs 3RF hydroxyzine HCl 50 mg PO BID PRN 30 tabs 0RF anxiety Patient Instructions: - Wear the Holter monitor for one week as instructed. - Begin Vitamin D supplementation at 2000 IU daily. - Follow a low sodium diet to manage blood pressure and reduce swelling. - Schedule a home sleep study to assess possible sleep apnea. - Maintain upcoming cardiology and vision appointments. - Consider magnesium supplementation in the evening if experiencing muscle cramps. - Follow up with recommended lab work as soon as possible. - Keep a log of symptoms and any new issues to discuss at the next appointment. - Call the office if symptoms worsen or new problems arise before the next visit.
[2024-06-29 11:15] VITALS: BP 136/82; PULSE 102; RESP 16; TEMP 37.1; O2SAT 97; BMI 33.3
--- OUTSIDE RECORDS SUMMARY | 2024-06-29 12:14 | XMS_ITS | Clinical Summary ---
Author Organization [employer] [facility] ity Address [address] [place] [address] Care Team Providers Care Contact Lens Blocker Name Role Phone Unavailable Primary Care Provider [...] Influencers of Health Screening 04/12/2023 COVID-19 Vaccine (2023-2 5 season) 2023 Hypertension/CHF/CAD Annual BMP Blood Test 01/07/2024 Influenza Vaccine (Season Ended) 2024 HIB Vaccines Aged Out No longer eligi [...] age to complete this topic Meningococcal B Vaccine Aged Out No l onger eligible based on patient's age to complete [...]
== END 2024-06-29 12:29 | disposition home or self-care (01) ==
LOC: HO.HMCH 11:08
DX: Z00.00 Encounter for general adult medical examination without abnormal findings (principal); R03.0 Elevated blood-pressure reading, without diagnosis of hypertension; R20.0 Anesthesia of skin; H53.8 Other visual disturbances; R00.2 Palpitations; R07.89 Other chest pain; M79.89 Other specified soft tissue disorders; R53.83 Other fatigue; E55.9 Vitamin D deficiency, unspecified; E78.00 Pure hypercholesterolemia, unspecified

== ENCOUNTER → 2024-07-05 11:28 | Outpatient (REF) | payer OTHER, SELFPAY ==
--- OUTSIDE RECORDS SUMMARY | 2024-07-05 13:45 | XMS_ITS | Clinical Summary ---
Author Organization [employer] [facility] ity Address [address] [place] [address] Care Team Providers Care Freight Clerk Name Role Phone Unavailable Primary Care Provider [...]
== END ==
LOC: HO.CARD 11:28
DX: R07.89 Other chest pain (principal); R00.2 Palpitations
CPT/HCPCS: 93242

== ENCOUNTER → 2024-07-05 11:30 | Outpatient (BNV) | payer OTHER, SELFPAY | PROVIDERS: Visit Provider Internal Medicine | DX: I47.10 Supraventricular tachycardia, unspecified (principal) | CPT/HCPCS: 93244 ==

== ENCOUNTER 2024-10-18 13:10 | Outpatient (AMB) | payer MEDICAID, SELFPAY ==
--- OUTSIDE RECORDS SUMMARY | 2024-10-18 13:13 | XMS_ITS | Clinical Summary ---
Author Organization [employer] [facility] ity Address [address] [place] [address] Care Team Providers Care Plant Clerk Name Role Phone Unavailable Primary Care [...] Panel) 04/12/2023 Colorectal Cancer Screening: Colonoscopy 04/12/2023 HIV Screening 04/12/2023 Hepatitis C Screening 04/12/2023 Social Influencers of Health Screening 04/12/2023 COVID-19 Vaccine ( - 2023-2 5 season) 2023 Depression Screening 03/14/2024 Influenza Vaccine (#1) 2024 HIB Vaccines Aged Out No longer [...] 5 Years) and At-Risk Patients (6 to 49 Years) Aged Out No longer eligible b ased on patient's age to complete this topic RSV Immunization Patients Un justin 20 months Aged Out No longer eligible b ased on patient's age to complete this topic Varicella Vaccines Aged Out No longer eligible based on patient's age to complete this topic
--- NOTE | 2024-10-18 13:16 | MHC.OFFVIS ---
Vital Signs 10/18/24 13:17 Height 5 ft 10 in Weight 229 lb 4 oz BMI 32.9 BP 136/90 H Blood Pressure Location Rt brachial Position Sitting Pulse 110 H Pulse Source Pulse Oximeter Pulse Oximetry (%) 98 Oxygen Delivery Method Room Air Intake Visit Reasons: INP-Anesthesia of the skin Intake Note: Inpt - Anesthesia of the skin, BP high and palpitation Style Advisor Required: No Accompanied by: Self / Same As Patient Allergies bee venom protein (honey bee) Allergy (Severe, Verified 10/18/24 13:21) Anaphylaxis bee sting Allergy (Unknown, Uncoded 06/29/24 11:47) anaphylaxis Medication List - Last Reconciled 10/18/24 by Lynn Torres MD amlodipine 10 mg PO DAILY atorvastatin 10 mg PO BEDTIME hydroxyzine HCl 50 mg PO BID HPI Comments Details: 44y/o male comes for evaluation of episodes of facial numbness and blurry vision. It started about 1 year ago.The episodes are 2-3 times a week - can last the whole day.He denies facial pain.No facial weakness. no trouble with speech but when he has facial numbness he also has some double vision.No h/o Sherborn palsy He also has palpitations which usually worsens the episodes. He has trouble falling asleep, staying asleep. He has snoring and daytime sleepiness. he also reports leg cramps . [facility] Medical History (Updated 10/18/24 @ 13:55 by Lynn Torres MD) Hypersomnia Snoring Muscle cramps Weakness on left side of face Pain of left heel Flat feet, bilateral Surgical History H/O right wrist surgery S/P appendectomy Family History Mother Hypertension Diabetes S/P triple vessel bypass Father Kidney disease Heart disease Son No problems noted. Daughter No problems noted. Social History Household Members: None Housing: House Alcohol intake: current Patient Tobacco Use Status: Current everyday Tobacco user Tobacco use type: Cigarette Cigarette Packs Per Day: 0.25 Cigarettes Per Day: 5 e-Cigarette/Vaping Use: Never Used service: No Current occupational status: employed Current occupation: Director Marketing Communications Cognitive needs: No Hearing needs: No Vision needs: No Physical Exam Vital Signs: Last Vital Signs Pulse 110 H 10/18/24 13:17 BP 136/90 H 10/18/24 13:17 Pulse Ox 98 10/18/24 13:17 Oxygen Delivery Method Room Air 10/18/24 13:17 BMI result Body Mass Index 32.9 Const General: cooperative, healthy appearing, comfortable and no acute distress Nutritional Appearance: obese Orientation/consciousness: patient oriented x3 Eyes Pupils: Equal, round and reactive pupils present Neuro Other: mild left facial paresis Mallampatti grade 4 General: patient oriented x3, tone normal, moves all extremities and no focal motor deficits Cranial nerves: Yes Facial sensation intact/muscles of mastication intact, Yes Equal, round and reactive pupils present, Yes Bilaterally intact EOM present, Yes Nystagmus not present, Yes Midline tongue present, Yes Symmetric palate elevation present and Yes Ability to bilaterally elevate shoulders present Cognition (Neuro): normal cognition Gait exam (Neuro): Normal gait present Motor exam (neuro): 5/5 motor strength present throughout and Normal motor muscle tone present throughout Deep tendon reflexes (DTR's): Right triceps reflex intensity grade: 1+, Left triceps reflex intensity grade: 1+, Rt Biceps (C5, C6): 1+, Left biceps reflex intensity grade: 1+, Right brachioradialis reflex intensity grade: 1+, Left brachioradialis reflex intensity grade: 1+, Right patellar reflex intensity grade: 1+ and Left patellar reflex intensity grade: 1+ Coordination: [id number] test normal Assessment & Plan Assessment & Plan (1) Numbness of face: Comment: ? Code(s): R20.0 - Anesthesia of skin Category: Medical (2) Weakness on left side of face: Code(s): R29.810 - Facial weakness Category: Medical (3) Muscle cramps: Code(s): R25.2 - Cramp and spasm Category: Medical (4) Snoring: Code(s): R06.83 - Snoring Category: Medical (5) Hypersomnia: Code(s): G47.10 - Hypersomnia, unspecified Category: Medical Plan I will evaluate him with MRI Brain to r/o structural causes Sleep study for evaluation of sleep apnea and possible PLMD Orders: Orders Vitamin B12 and Folate Today R25.2 - Cramp and spasm Ferritin Today R25.2 - Cramp and spasm RT home sleep study Today G47.10 - Hypersomnia, unspecified, R06.83 - Snoring Erythrocyte Sedimentation Rate Today R25.2 - Cramp and spasm MR head/brain wo con Today R20.0 - Anesthesia of skin, R29.810 - Facial weakness Coding Level of Care Code New Pt Level 4 (24717) Diagnoses Numbness of face R20.0 Weakness on left side of face R29.810 Muscle cramps R25.2 Snoring R06.83 Hypersomnia G47.10
[2024-10-18 13:17] VITALS: BP 136/90; PULSE 110; O2SAT 98; BMI 32.9
== END 2024-10-18 14:10 | disposition home or self-care (01) ==
LOC: HO.HSMS 13:10
PROVIDERS: Visit Provider Psychiatry & Neurology Neurology
DX: R20.0 Anesthesia of skin (principal); R29.810 Facial weakness; R25.2 Cramp and spasm; R06.83 Snoring; G47.10 Hypersomnia, unspecified
CPT/HCPCS: 99204

== ENCOUNTER 2024-10-18 13:10 | Outpatient (REF) | payer MEDICAID, SELFPAY ==
[2024-10-18 18:29] LABS: Ferritin 367 ng/mL (20-250)
[2024-10-18 18:49] LABS: Folate 5.6 ng/mL (> or = 4.0); Vitamin B12 295 pg/mL (200-900)
== END 2024-10-18 13:11 | disposition home or self-care (01) ==
LOC: HO.HKASLDS 13:10
PROVIDERS: Visit Provider Psychiatry & Neurology Neurology
DX: R20.0 Anesthesia of skin (principal); R29.810 Facial weakness; R25.2 Cramp and spasm; R06.83 Snoring; G47.10 Hypersomnia, unspecified
CPT/HCPCS: 36415; 82607; 82728; 82746; 85652; 99202

== ENCOUNTER 2024-11-18 10:24 | Outpatient (REF) | payer BC, SELFPAY ==
--- NOTE | ~2024-11-18 | MR_ITS ---
CLINICAL HISTORY: R29.810 - Facial weakness MR Brain without gadolinium Comparison: None provided Findings: The size and shape of the ventricular system is within normal limits. Few tiny foci of T2 and FLAIR hyperintensity are identified within the deep white matter. Gan-white differentiation is well preserved. No restricted diffusion. No midline shift or mass effect. No intracranial hemorrhage. Visualized flow voids are patent. No calvarial lesions. Polypoid mucosal thickening is seen within the bilateral maxillary sinuses with moderate mucosal thickening throughout the ethmoid air cells. IMPRESSION: 1. No acute intracranial findings. Specifically, no hemorrhage, mass, or restricted diffusion. 2. Paranasal sinus disease as above. This document has been electronically signed by: Luis Comer MD on 11/20/2024 09:15:56
--- OUTSIDE RECORDS SUMMARY | 2024-11-18 10:27 | XMS_ITS | Clinical Summary ---
Author Organization [employer] [facility] ity Address [address] [place] [address] Care Team Providers Care District Sales Manager Name Role Phone Unavailable Primary Care Provider [...] 04/12/2023 Social Influencers of Health Screening 04/12/2023 Depression Screening 03/14/2024 COVID-19 Vaccine (2023-2 5 season) 2024 Influenza Vaccine (#1) 2024 HIB Vaccines Aged [...]
== END 2024-11-18 10:25 | disposition home or self-care (01) ==
LOC: HO.MRI 10:24
PROVIDERS: Visit Provider Psychiatry & Neurology Neurology
DX: R29.810 Facial weakness (principal); R20.0 Anesthesia of skin
CPT/HCPCS: 70551

== ENCOUNTER → 2024-11-18 10:24 | Outpatient (BNV) | payer BC, SELFPAY | PROVIDERS: Visit Provider Radiology Diagnostic Radiology | DX: R29.810 Facial weakness (principal); J34.9 Unspecified disorder of nose and nasal sinuses | CPT/HCPCS: 70551 ==

== ENCOUNTER 2024-12-18 12:27 | Outpatient (AMB) | payer MEDICAID, SELFPAY ==
[2024-12-18 12:47] VITALS: BP 132/92; PULSE 91; O2SAT 98; BMI 32.8
--- NOTE | 2024-12-18 12:47 | A.OFFVIS_ITS ---
Vital Signs 12/18/24 12:47 Height 5 ft 10 in Weight 228 lb 8 oz BMI 32.8 BP 132/92 H Blood Pressure Location Rt brachial Pulse 91 Pulse Source Pulse Oximeter Pulse Oximetry (%) 98 Oxygen Delivery Method Room Air Intake Visit Reasons: 2 month follow up Intake Note: Follow up Hypersomnia, unspecified, numbness of face, muscle cramps Licensed Veterinary Technician Required: No Accompanied by: Self / Same As Patient Allergies bee venom protein (honey bee) Allergy (Severe, Verified 12/18/24 12:47) Anaphylaxis bee sting Allergy (Unknown, Uncoded 06/29/24 11:47) anaphylaxis Medication List - Last Reconciled 12/18/24 by Lynn Torres MD amlodipine 10 mg PO DAILY atorvastatin 10 mg PO BEDTIME hydroxyzine HCl 50 mg PO BID HPI Comments Details: 44y/o male comes for f/u of episodes of facial numbness and blurry vision. He did not sleep study yet. he denies neck pain . It started about 1 year ago.The episodes are 2-3 times a week - can last the wh day.He denies facial pain.No facial weakness. no trouble with speech but when he has facial numbness he also has some double vision.No h/o [place] palsy He also has palpitations which usually worsens the episodes. He has trouble falling asleep, staying asleep. He has snoring and daytime sleepiness. he also reports leg cramps . COUNT INCLUDES THE [facility] Medical History (Updated 10/18/24 @ 13:55 by Lynn Torres MD) Hypersomnia Snoring Muscle cramps Weakness on left side of face Pain of left heel Flat feet, bilateral Surgical History H/O right wrist surgery S/P appendectomy Family History Mother Hypertension Diabetes S/P triple vessel bypass Father Kidney disease Heart disease Son No problems noted. Daughter No problems noted. Social History Household Members: None Housing: House Alcohol intake: current Patient Tobacco Use Status: Current everyday Tobacco user Tobacco use type: Cigarette Cigarette Packs Per Day: 0.25 Cigarettes Per Day: 5 e-Cigarette/Vaping Use: Never Used service: No Current occupational status: employed Current occupation: Entry Level Manager Cognitive needs: No Hearing needs: No Vision needs: No Physical Exam Vital Signs: Last Vital Signs Pulse 91 12/18/24 12:47 BP 132/92 H 12/18/24 12:47 Pulse Ox 98 12/18/24 12:47 Oxygen Delivery Method Room Air 12/18/24 12:47 BMI result Body Mass Index 32.8 Const General: cooperative, healthy appearing, comfortable and no acute distress Nutritional Appearance: obese Orientation/consciousness: patient oriented x3 Eyes Pupils: Equal, round and reactive pupils present Neuro Other: mild left facial paresis Mallampatti grade 4 General: patient oriented x3, tone normal, moves all extremities and no focal motor deficits Cranial nerves: Yes Facial sensation intact/muscles of mastication intact, Yes Equal, round and reactive pupils present, Yes Bilaterally intact EOM present, Yes Nystagmus not present, Yes Midline tongue present, Yes Symmetric palate elevation present and Yes Ability to bilaterally elevate shoulders present Cognition (Neuro): normal cognition Gait exam (Neuro): Normal gait present Motor exam (neuro): 5/5 motor strength present throughout and Normal motor muscle tone present throughout Coordination: [id number] test normal Assessment & Plan Assessment & Plan (1) Numbness of face: Comment: ? Code(s): R20.0 - Anesthesia of skin Category: Medical (2) Weakness on left side of face: Code(s): R29.810 - Facial weakness Category: Medical (3) Muscle cramps: Code(s): R25.2 - Cramp and spasm Category: Medical (4) Snoring: Code(s): R06.83 - Snoring Category: Medical (5) Hypersomnia: Code(s): G47.10 - Hypersomnia, unspecified Category: Medical Plan I will evaluate him with MRA Brain to r/o neurovascular compression I will trial him baclofen 10mg qhs Sleep study for evaluation of sleep apnea and possible PLMD Orders: Orders MR angio head wo/w con Today R20.0 - Anesthesia of skin, R29.810 - Facial weakness Medications: New baclofen 10 mg PO BEDTIME 30 tabs 6RF Coding Level of Care Code Est Pt Level 4 (00227) Diagnoses Numbness of face R20.0 Weakness on left side of face R29.810 Muscle cramps R25.2 Snoring R06.83 Hypersomnia G47.10
--- OUTSIDE RECORDS SUMMARY | 2024-12-18 15:21 | XMS_ITS | Clinical Summary ---
Author Organization [facility] ity Address [address] [place] [address] Care Team Providers Care Banking Manager Name Role Phone Unavailable Primary Care Provider Unavailabl e Social History Tobacco Use Types Packs/Day Years Used Date Smoking Tobacco: Never Assessed Sex and Gender Information Value Date Recorded Sex Assigned at Not on file Legal Sex Male 2:56 AM EST Gender Identity Not on file Sexual Orientation Not on file Plan of Treatment Health Maintenance Due Date Last Done Comments Colorectal Cancer Screening: Colonoscopy 1978 DTaP,Tdap,and Td Vaccines (1 - Tdap) 1997 Hepatitis B Vaccines (1 of 3 - 19+ 3-dose series) 1997 Cholesterol Screening (Lipid Panel) 04/12/2023 HIV Screening 04/12/2023 Hepatitis C Screening 04/12/2023 Social Influencers of Health Screening 04/12/2023 Depression Screening 03/14/2024 COVID-19 Vaccine ( - 2023-2 5 season) 2024 Influenza Vaccine (#1) 2024 RSV Immunization Adult Patie nts (1 - 1-dose 75+ series) 2053 HIB Vaccines Aged Out No longer eligi [...]
== END 2024-12-18 13:20 | disposition home or self-care (01) ==
LOC: HO.HSMS 12:28
PROVIDERS: Visit Provider Psychiatry & Neurology Neurology
DX: R20.0 Anesthesia of skin (principal); R29.810 Facial weakness; R25.2 Cramp and spasm; R06.83 Snoring; G47.10 Hypersomnia, unspecified
CPT/HCPCS: 99214

== ENCOUNTER → 2024-12-18 12:27 | Outpatient (BNVA) | payer MEDICAID, SELFPAY | PROVIDERS: Visit Provider Psychiatry & Neurology Neurology | DX: R20.0 Anesthesia of skin (principal); R29.810 Facial weakness; R25.2 Cramp and spasm; R06.83 Snoring; G47.10 Hypersomnia, unspecified | CPT/HCPCS: 99212 ==

== ENCOUNTER → 2025-01-07 13:31 | Outpatient (BNV) | payer BC, SELFPAY | PROVIDERS: Visit Provider Radiology Diagnostic Radiology | DX: R29.810 Facial weakness (principal) | CPT/HCPCS: 70546 ==

== ENCOUNTER 2025-01-07 13:34 | Outpatient (REF) | payer BC, SELFPAY ==
--- NOTE | ~2025-01-07 | MR_ITS ---
EXAMINATION: MR ANGIOGRAPHY BRAIN WITHOUT AND WITH CONTRAST CLINICAL INFORMATION: Facial weakness. R29.810. COMPARISON: None available. TECHNIQUE: 3-D uica-po-izdlop. Maximum intensity projections vessels of elim ira of Thomas. Total of 10.0 cc of gadolinium based (Gadavist) without reported immediate complications. FINDINGS: ICAs: Normal patency. No focal stenosis. No intimal flap. No abrupt cut off. ICA terminus demonstrated no vascular irregularity. MCAs: Normal patency. No focal stenosis. No abrupt cut off. Bifurcation/trifurcation demonstrated no vascular irregularity/abnormality. ACAs: Normal patency. No focal stenosis. No abrupt cut off. Anterior communicating artery is not fully depicted on the exam. Ophthalmic arteries are patent without vascular abnormality. Right posterior communicating artery origin is patent without gross abnormality. The left is not depicted on the exam. Posterior cerebral circulation: V3/V4 segments: Normal patency. No intimal flap. No focal stenosis. Left vertebral artery slightly dominant. Posterior inferior cerebral arteries are patent without gross abnormality. Basilar artery is patent without focal stenosis or intimal flap. Superior cerebellar arteries are patent without gross abnormality. Anterior inferior cerebellar arteries are not depicted on the exam. cocoa bean cleaner: Normal patency. No focal stenosis. No abrupt cut off. No gross abnormality at the origin. MR/MR angio head wo/w con IMPRESSION: No main cerebral artery occlusion or embolus or gross aneurysm. Incomplete elim ira of Thomas. Slight dominant left vertebral artery. Electronically signed by: Zackary Gamino MD 01/07/2025 02:37 PM EDT
--- OUTSIDE RECORDS SUMMARY | 2025-01-07 17:12 | XMS_ITS | Clinical Summary ---
Author Organization [facility] ity Address [address] [place] [address] Care Team Providers Care Unit Director Name Role Phone Unavailable Primary Care Provider [...]
== END 2025-01-07 13:35 | disposition home or self-care (01) ==
LOC: HO.MRI 13:34
PROVIDERS: Visit Provider Psychiatry & Neurology Neurology
DX: R29.810 Facial weakness (principal); R20.0 Anesthesia of skin
CPT/HCPCS: 70546; A9585

== ENCOUNTER 2025-01-10 09:53 | Outpatient (AMB) | payer BC, SELFPAY ==
--- NOTE | 2025-01-10 09:55 | MHC.OFFVIS ---
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 Patient is a 44-year-old male with anxiety, currently taking hydroxyzine and says stents he gets anxious but tries to controlled without medicines. He has also been diagnose with hypertension and has been gradually treated with uptitrate dose of amlodipine. He comes in today in his blood pressure has been controlled. He says intermittently gets symptoms of rapid heart rate happens throughout the day very feels heart rate is racing fast and then gets pulsating sensation in his left biceps. This concerns him. He is worried about his own heart disease given coronary disease history in both his father and in his mother. His mother recently underwent coronary artery bypass grafting. He also has hyperlipidemia with LDL in the 180s was started on low-dose atorvastatin and his LDL is improved. He complains of pain in the precordial area which is not always exertional related. Patient also complains of fast heart rate as mentioned above. He also complains of feeling hot and cold. That has no recent blood work for hormonal evaluation. Patient denies any worsening shortness of breath, orthopnea, PND. He has started to cut down smoking and smokes about 1 pack over 4 days compared to 1 pack a day in the past. He is very worried and wants to evaluate underlying cardiac issues. He had a Holter monitor recently which showed frequent sinus tachycardia without significant arrhythmias. He was having symptoms at that time as well. PENDING SALE TO [facility] Medical History Family history of coronary artery disease HTN (hypertension) Hypersomnia Snoring Muscle cramps Weakness on left side of face Pain of left heel Flat feet, bilateral Surgical History H/O right wrist surgery S/P appendectomy Family History Mother Hypertension Diabetes S/P triple vessel bypass Father Kidney disease Heart disease Son No problems noted. Daughter No problems noted. 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 Cognitive needs: No Hearing needs: No Vision needs: No Review of Systems Const Reports chills, Reports daytime sleepiness, Reports fatigue, Denies fever(s), Denies frequent falls, Reports poor appetite, Reports snoring, Reports stops breathing during sleep, Reports weakness, Denies weight gain and Reports weight loss Eyes Reports loss of vision ENT Reports dizziness and Denies hearing loss Card Reports chest pain, Denies claudication, Denies leg edema, Reports lightheadedness, Reports palpitations, Reports dyspnea, Reports dyspnea on exertion and Reports orthopnea Resp Denies cough, Denies excessive phlegm production, Reports dyspnea, Reports dyspnea on exertion, Reports snoring and Denies wheezing GI Denies abdominal pain, Denies hematochezia, Denies change in bowel habits, Denies nausea and Denies vomiting Denies dysuria and Denies urinary frequency Musc Denies arthralgias, Denies muscle weakness and Denies numbness Skin/Breast Denies nail changes and Denies rash Neuro Denies Abnormal speech present, Reports dizziness, Denies frequent falls, Reports loss of vision, Denies memory loss, Denies numbness and Reports weakness Psych Reports depression and Denies memory loss Endo Reports fatigue and Reports palpitations Al/Lymph Reports easy bruising and Reports other (anemia) Aller/Immun Denies wheezing Physical Exam Vital Signs: Last Vital Signs Pulse 82 01/10/25 09:56 BP 122/74 01/10/25 09:56 BMI result Body Mass Index 33.5 Const General: cooperative, comfortable, alert, awake, anxious and well groomed Nutritional Appearance: obese Orientation/consciousness: patient oriented x3 Limitations: no limitations HEENT Head: Yes normocephalic and Yes atraumatic Neck Neck: Yes trachea midline, Yes supple and Yes no JVD Resp Effort & Inspection: normal respiratory effort Auscultation: clear to auscultation bilaterally Cardio Jugular venous distension: no JVD Rate: regular rate Rhythm: regular rhythm Heart sounds: S1 normal heart sound present, S2 normal heart sound present, no click, no gallops, no murmurs and no rubs GI Auscultation: normal bowel sounds Skin General skin exam: no rashes or lesions noted Neuro General: patient oriented x3 and no focal motor deficits Speech: No Abnormal speech present Extrem General: Yes no clubbing, cyanosis or edema Psych Appearance: grossly normal Affect: Anxious affect present Office Procedures EKG Details: EKGs shows normal sinus rhythm with voltage criteria for LVH with T-wave inversion inferior lead which could represent repolarization abnormality [id number], Complete Assessment & Plan Assessment & Plan (1) Atypical chest pain: Code(s): R07.89 - Other chest pain Category: Medical Plan: Patient with atypical chest pain although at significant risk factors including smoking, hyperlipidemia, family history. Need to rule out myocardial ischemia. He has baseline EKGs normal therefore would suggest exercise myocardial perfusion to for ischemia. If this is negative at high workload would pursue coronary calcium score to assess for presence of coronary atherosclerosis. This was discussed with him. Also possible his chest pain syndrome could be related to anxiety/fast heart rate and will start him on Inderal long-acting 60 mg/dL. Stress mitigation strategies were discussed. Also possible that this could be related to hypertensive heart disease would suggest an echocardiogram to assess for the same. (2) HTN (hypertension): Code(s): I10 - Essential (primary) hypertension Category: Medical Plan: Hypertension which on current exam is well optimized. I will add Inderal LA 60 mg to his regimen as above which should help with some of his symptoms of palpitation rapid heart rate. Also check for hormonal imbalance including plasma metanephrines, TSH as well as testosterone level. Complete smoking cessation was strongly advised. Will modified lipid further based on the coronary calcium score as needed. Follow up in the clinic in 2 months time, sooner PRN. Thank you for allowing me to partake in his care Orders: Orders Testosterone, Free/Total Today R00.2 - Palpitations CA stress test Today R07.89 - Other chest pain TSH reflex Free T4 Today R00.2 - Palpitations Metanephrines, Plasma Today R00.2 - Palpitations CA echo transthoracic complete Today I10 - Essential (primary) hypertension NM cardiolite stress test 2 Weeks R07.89 - Other chest pain, R07.9 - Chest pain, unspecified CT Coronary Calcium Score 6 Weeks E78.5 - Hyperlipidemia, unspecified, I10 - Essential (primary) hypertension Medications: New propranolol ER (Inderal LA) 60 mg PO DAILY 30 caps 5RF Coding Level of Care Code New Pt Level 4 (76995) Complex EM visit Add On G2211 Diagnoses Atypical chest pain R07.89 HTN (hypertension) I10 CPT Codes EKG - CPT: [id number]-[id number], Complete ([id number])
[2025-01-10 09:56] VITALS: BP 122/74; PULSE 82; BMI 33.5
--- OUTSIDE RECORDS SUMMARY | 2025-01-10 11:41 | XMS_ITS | Clinical Summary ---
Author Organization [facility] [employer] [facility] ity Address [address] [place] [address] Care Team Providers Care Boom Crane Operator Name Role Phone Unavailable Primary Care [...]
== END 2025-01-10 10:26 | disposition home or self-care (01) ==
LOC: HO.HCS 09:54
PROVIDERS: Visit Provider Internal Medicine Cardiovascular Disease
DX: R07.89 Other chest pain (principal); I10 Essential (primary) hypertension
CPT/HCPCS: 93010; 99204

== ENCOUNTER → 2025-01-10 09:53 | Outpatient (BNVA) | payer BC, SELFPAY | PROVIDERS: Visit Provider Internal Medicine Cardiovascular Disease | DX: R00.2 Palpitations (principal); R07.89 Other chest pain; I10 Essential (primary) hypertension | CPT/HCPCS: 93005 ==

== ENCOUNTER → 2025-03-05 13:49 | Outpatient (REF) | payer BC, OTHER, SELFPAY ==
--- NOTE | 2025-03-05 13:52 | CA_ITS ---
Transthoracic Echocardiogram Patient (Last, First, Middle): Zaheer Anderson A Gender: M Date of : 1980 Age: 45 Procedure Date: 03/05/2025 Procedure Type: Transthoracic Echocardiogram Location: OP Height: 180. cm Weight: 104.33 kg BSA: 2.23 m2 Heart Rate: 67 bpm BP: 135 / 80 mmHg Sales Service Manager: ARTIE Referring MD: Bird Knight MD Pigment And Lacquer Mixer: Bird Knight MD Symptoms: I10 - Essential (primary) hypertension Study Quality: Adequate ECG Rhythm: Sinus Conclusions: - Essentially normal study with trivial aortic regurgitation Findings Left Ventricle Normal left ventricular size, thickness, and systolic function. The visually estimated ejection fraction is between 60-65%. Spectral Doppler is indicative of a normal filling pattern. Right Ventricle Normal right ventricular cavity size and systolic function. Atria The left atrium is mildly dilated. There is no evidence of interatrial shunt. The right atrium is normal in size. Aortic Valve The aortic valve structure and function is likely normal. There is no aortic valve stenosis. There is no aortic valve regurgitation. Mitral Valve Normal mitral valve structure and function. There is trace mitral valve regurgitation. There is no mitral valve stenosis. Pulmonic Valve The pulmonic valve is likely normal. There is trace pulmonic valve regurgitation. Tricuspid Valve Normal tricuspid valve structure. Tricuspid regurgitation envelope is inadequate for calculation of right ventricular systolic pressure. Normal right atrial pressure. Great Vessels All visible segments of the aorta are normal in size. The pulmonary artery was not well visualized. There is no dilatation of the ascending aorta measuring 3.00 cm. Venous The inferior vena cava is normal in size and collapses greater than 50% with inspiration. Pericardium/Pleural There is a trivial pericardial effusion. Prior Study Comparison No prior study available for comparison. Measurements 2D Linear Measurements IVSd: 1.40 0.6-0.9/0.6-1.0 cm LVIDd: 4.62 3.9-5.3/4.2-5.9 cm LVIDd Index: 2.07 2.4-3.2/2.2-3.1 cm/m2 LVIDs: 3.05 2.0-3.6 cm LVPWd: 1.55 0.7-1.1 cm LA Diam: 4.20 2.7-3.8/3.0-4.0 cm LAIDs Index: 1.88 1.5-2.3 cm/m2 LV Mass: 348.59 67-162/88-224 g LV Mass Index: 156.32 43-95/49-115 g/m2 LVOT Diam: 2.20 3.0+(-)1.3 cm 2D Systolic Function EF 4C: 65.60 >55% EF 2C: 61.70 >55% EF BiP: 64.90 >55% Mitral Valve MV Pk E: 0.79 MV PK A: 0.54 MV Decel Time: 238.00 E/A: 1.50 E'Lateral: 8.92 E'Medial: 7.72 E/E' Med: 10.20 E/E' Lat: 8.80 PHT: 70.00 MVA PHT: 3.14 Decel Kendall: 3.32 Aortic Valve AoV Pk Georges: 1.42 AoV Mn Georges: 1.02 AoV VTI: 0.30 AoV Pk Grad: 8.00 Aov Mn Grad: 5.00 EDITH Cont.VTI: 3.36 LVOT LVOT Pk Georges: 1.12 LVOT Mn Georges: 0.83 LVOT VTI: 0.27 LVOT Pk Grad: 5.00 LVOT Mn Grad: 3.00 LVOT Diam: 2.20 LVOT Area: 3.80 Diastolic Function MV Pk E: 0.79 MV Pk A: 0.54 E/A: 1.50 E'Medial: 7.72 E/E' Med: 10.20 E' Laterial: 8.92 E/E' Lat: 8.80 Right Ventricle TAPSE (mm): 26.40 TVS' Georges: 11.90 Tricuspid Valve RA Press: 3.00 Great Vessels Aorta Sinus of Valsalva: 3.40 2.0-3.5 cm Ao Asc: 3.00 2.1-3.4 cm Ao Arch: 3.00 Pulmonary Veins Pulm Vein S/D 1.60 Pulmonary Valve PV Pk Georges: 1.01 Peak PV Grad: 4.00 Updated in Other Vendor System with Status of Final Bird Knight MD electronically signed on 03/06/2025 2:01:39 PM with status of Final
--- OUTSIDE RECORDS SUMMARY | 2025-03-05 15:02 | XMS_ITS | Clinical Summary ---
Author Organization [facility] [employer] [facility] ity Address [address] [place] [address] Care Team Providers Care System Support Specialist Name Role Phone Unavailable Primary Care [...] Screening 04/12/2023 Depression Screening 03/14/2024 COVID-19 Vaccine (1 - 2024-2 6 season) 2024 Influenza Vaccine (#1) 2024 RSV [...]
== END ==
LOC: HO.CARD 13:49
PROVIDERS: Visit Provider Internal Medicine Cardiovascular Disease
DX: I10 Essential (primary) hypertension (principal)
CPT/HCPCS: 93306

== ENCOUNTER → 2025-03-05 13:52 | Outpatient (BNV) | payer BC, OTHER, SELFPAY | PROVIDERS: Visit Provider Internal Medicine Cardiovascular Disease | DX: I10 Essential (primary) hypertension (principal) | CPT/HCPCS: 93306 ==